=== PATIENT | female | born 1995 | race Caucasian/White ===

== ENCOUNTER 2019-05-24 16:29 | Emergency (ER) | payer MEDICAID, OTHER ==
[~2019-05-24] VITALS: Ht 167.6 cm; Wt 70.3 kg
[2019-05-24 16:43] VITALS: BP_SYST 124
--- NOTE | 2019-05-24 16:53 | NUR ---
Patient to ER bed 3 to gown for evaluation. Side rails up. Report given to ANGELICA Doyle.
--- NOTE | 2019-05-24 17:02 | NUR ---
Patient is awake, alert, and oriented x4. Patient is complaining of sharp lower abdominal pain / since thursday with nausea and vomiting. Patient denies diarrhea.
--- NOTE | 2019-05-24 17:10 | NUR ---
ER Dr. Stubbs at bedside examining patient.
[2019-05-24] MEDS ORDERED: KETOROLAC TROMETHAMINE 60 MG/2 ML VIAL IM ONE (17:30)
[2019-05-24 17:45] VITALS: BP_SYST 128
--- NOTE | 2019-05-24 17:45 | NUR ---
Patient given written and verbal discharge instructions and verbalizes understanding. ER MD discussed with patient the results and treatment provided. Patient in stable condition. ID arm band removed. Rx of motrin, zofran, norco given. Patient educated on pain management and to follow up with PMD. Pain Scale 6/10, Dr. Stubbs is aware. Opportunity for questions provided and answered. Medication side effect fact sheet provided.
== END 2019-05-24 17:45 | disposition home or self-care (01) ==
LOC: SED 16:29
DX: R10.30 Lower abdominal pain, unspecified (principal); R03.0 Elevated blood-pressure reading, without diagnosis of hypertension
CPT/HCPCS: 81002; 81025; 96372; 99283; J1885

== ENCOUNTER 2023-11-09 11:26 | Emergency (ER) | payer OTHER ==
[~2023-11-09] VITALS: Ht 170.2 cm; Wt 72.6 kg
[2023-11-09 11:31] VITALS: BP_SYST 110; PULSE 125; RESP 18; TEMP 98.3; O2SAT 97
[2023-11-09 11:59] LABS: COVID19 ANTIGEN SOFIA FIA NEGATIVE (NEGATIVE)
[2023-11-09 12:04] LABS: INFLUENZA TYPE A Negative (NEGATIVE); INFLUENZA TYPE B NEGATIVE (NEGATIVE)
[2023-11-09] MEDS ORDERED: CLAR250T39 PO (12:21)
[2023-11-09] MEDS ORDERED: ALBMDI INH (12:22)
[2023-11-09 12:28] VITALS: BP_SYST 115; PULSE 105; RESP 18; TEMP 98.3; O2SAT 95
== END 2023-11-09 19:41 | disposition home or self-care (01) ==
LOC: SED 11:26
DX: J20.9 Acute bronchitis, unspecified (principal); R05.9 Cough, unspecified; R07.0 Pain in throat; H92.01 Otalgia, right ear; Z88.1 Allergy status to other antibiotic agents; Z88.6 Allergy status to analgesic agent; Z79.899 Other long term (current) drug therapy; Z20.822 Contact with and (suspected) exposure to COVID-19
CPT/HCPCS: 36415; 71045; 99284